=== PATIENT | male | born 1980 | race Caucasian/White ===

== ENCOUNTER 2019-05-30 19:59 | Emergency (ER) | payer SELFPAY ==
[2019-05-30] MEDS ORDERED: Triple Antibiotic Oint 1 GM Packet ONE (21:09)
[2019-05-30] MEDS ORDERED: diphenhydrAMINE 25 MG CAP ONE (21:09)
== END 2019-06-01 09:34 ==
LOC: ERS 19:59
DX: R45.851 Suicidal ideations (principal); R44.0 Auditory hallucinations; F17.210 Nicotine dependence, cigarettes, uncomplicated
CPT/HCPCS: 99285; Q0163